=== PATIENT | male | born 1990 | race Caucasian/White ===

== ENCOUNTER → 2022-04-26 09:37 | Outpatient (CLI) | payer OTHER, SELFPAY ==
--- NOTE | 2022-04-26 09:44 | DI.CT.S_ITS ---
PROCEDURE: CT LUMBAR SPINE WO CON INDICATIONS: Arthrodesis status TECHNIQUE: Noncontrast 3 mm thick sections acquired from the T12 level to the sacrum. Sagittal and coronal reformats were constructed. For radiation dose reduction, the following was used: automated exposure control. COMPARISON: None. FINDINGS: Image quality: Excellent. Bones: Extensive postoperative changes are seen in the lumbar spine with pedicular screw and yumiko fixation spanning from the visualized thoracic spine at T11 to L5. The visualized screws in T11, T12, L3, and L5 appear intact. The rods are intact. There is been discectomy and fusion at L1-2 and L2-3. Discectomy and disc spacers are present at L3-4 and L4-5. The L4-5 disc space demonstrates destruction of the endplates with vertebral body height loss with a interposed disc spacer. There are 2 screws in each sacrum. A disc osteophyte at L3-4 causes severe central canal stenosis. There is lucency surrounding the right L5 screws. The right L1 foramina has severe stenosis. The left L1 foramina has severe stenosis. Both L3-4 foramina have moderate stenosis. Soft tissues: No retroperitoneal masses or hematomas. Visualized aorta is normal in caliber. There is atrophy of the paraspinal muscles and the iliopsoas muscles. IMPRESSION: Postoperative changes as above. The L4-5 disc space demonstrates destruction and extensive lucency between L4 and L5. The screws in L5 have surrounding lucency consistent with loosening. There is foraminal stenosis at multiple levels. Severe central canal stenosis is present at L3-4. Dictated by: Mark Zacarias M.D. on 04/26/2022 at 11:29 Approved by: Mark Zacarias M.D. on 04/26/2022 at 12:04
== END ==
PROVIDERS: Referring Provider Physician Assistant Surgical; Visit Provider Physician Assistant Surgical
DX: R29.898 Other symptoms and signs involving the musculoskeletal system (principal); G82.20 Paraplegia, unspecified; Z98.1 Arthrodesis status; M48.061 Spinal stenosis, lumbar region without neurogenic claudication
CPT/HCPCS: 72131

== ENCOUNTER → 2022-06-23 13:32 | Outpatient (CLI) | payer OTHER, SELFPAY ==
--- NOTE | 2022-06-23 13:33 | DI.CT.S_ITS ---
PROCEDURE: CT THORACIC SPINE WO CON INDICATIONS: Scoliosis, unspecified TECHNIQUE: Noncontrast 3 mm thick sections acquired through the region of interest in the thoracic spine. Sagittal and coronal reformats were then constructed. For radiation dose reduction, the following was used: automated exposure control. COMPARISON: [facility], MR, T-SPINE WITHOUT CONTRAST, 05/02/2008, 18:56. [facility], CT, CT LUMBAR SPINE WO CON, 06/23/2022, 13:39. [facility], CT, CT LUMBAR SPINE WO CON, 04/26/2022, 9:59. FINDINGS: Image quality: There is artifact associated with the metallic hardware. Artifact from the metallic hardware is reduced by metal reconstruction algorithm. Bones: No acute vertebral body compression fractures. No suspicious sclerotic or lytic bony lesions. Central spinal canal is of normal overall caliber. Mild levoconvex scoliotic curvature is noted. There is transitional anatomy seen, with 13 pairs of ribs. These are considered to be T1 through T13. On the accompanying lumbar MRI, 5 lumbar type vertebral bodies are seen, which are regarded to be L1 through L5. This numbering scheme is chosen to remain consistent with the prior lumbar CT report dated 04/26/2022. Extensive postoperative hardware can be seen, with bilateral pedicle screws T6 through the visualized upper thoracic spine. The screws are well placed. Vertical fixation rods are seen. No findings of hardware failure or hardware loosening are seen. Bone grafting material is noted. Extensive postoperative hardware is seen, with pedicle screws Soft tissues: No paravertebral masses or hematomas. Visualized posteromedial lungs appear clear. IMPRESSION: Extensive postoperative hardware is seen. The screws appear well placed. No findings of hardware failure or hardware loosening are seen. Transitional anatomy is seen, with 13 pairs of ribs. Dictated by: Jerome Patton M.D. on 06/23/2022 at 14:24 Approved by: Jerome Patton M.D. on 06/23/2022 at 14:45
--- NOTE | 2022-06-23 13:33 | DI.CT.S_ITS ---
PROCEDURE: CT LUMBAR SPINE WO CON INDICATIONS: Scoliosis, unspecified TECHNIQUE: Noncontrast 3 mm thick sections acquired from the T12 level to the sacrum. Sagittal and coronal reformats were constructed. For radiation dose reduction, the following was used: automated exposure control. COMPARISON: [facility], CT, CT LUMBAR SPINE WO CON, 04/26/2022, 9:59. FINDINGS: Image quality: Excellent. Bones: There is extensive postoperative change. Again noted is the right posterior lateral yumiko. The right L5 screw, which previously had a somewhat more medial course, and had significant lucency surrounding it, has been replaced and redirected. The right L4 screw appears unchanged. There is a bit of lucency surrounding it, as there was before. The other imaged screws, involving T10, T11, T12, L1, L2, and L3, on the right, are unchanged. Again noted is a disc spacer between L3 and L4. The partial L5 vertebral body graft has been replaced with a single larger piece of graft material. There is lucency surrounding this new device. This is consistent with recent placement. The left posterior lateral yumiko and pedicle screw fixation device is again noted. The left L5 pedicle screw has been removed. The other screws remain intact, with screws in T10 through L3. There also bilateral posterior lateral rods which do not have pedicle screws, as was previously the case. These connect to bilateral sacral screws. There are 3 sacral screws on each side. There is some degree of lucency, which is not significantly changed. There appear to be probable bilateral antibiotic impregnated vertical devices that have been placed posterior laterally extending from approximately L2 through L5. Soft tissues: No retroperitoneal masses or hematomas. Visualized aorta is normal in caliber. IMPRESSION: 1. Extensive revision, as described. There are no findings on this study which suggest complications related to the interval surgery. These are all presumed to be expected findings. 2. This study will serve as a baseline for comparison for future studies. 3. There is unchanged lucency surrounding the sacral screws. Dictated by: Abdiaziz Cherry M.D. on 06/23/2022 at 17:12 Approved by: Abdiaziz Cherry M.D. on 06/23/2022 at 17:33
== END ==
PROVIDERS: Referring Provider Physician Assistant Surgical; Visit Provider Physician Assistant Surgical
DX: M41.9 Scoliosis, unspecified (principal); G95.11 Acute infarction of spinal cord (embolic) (nonembolic); R29.898 Other symptoms and signs involving the musculoskeletal system; G82.20 Paraplegia, unspecified; S32.001K Stable burst fracture of unspecified lumbar vertebra, subsequent encounter for fracture with nonunion; Z96.7 Presence of other bone and tendon implants
CPT/HCPCS: 72128; 72131